=== PATIENT | female | born 1940 | race Caucasian/White ===

== ENCOUNTER 2019-02-03 15:28 | Emergency (ER) | payer OTHER ==
[~2019-02-03] VITALS: Ht 149.9 cm; Wt 70.5 kg
[2019-02-03 15:31] VITALS: Ht 149.9 cm; Wt 70.5 kg
[2019-02-03] MEDS ORDERED: DIPHTH/TET/ACEL PERTUSS (ADULT) 0.5 ML VIAL IM* ONE (17:00)
[2019-02-03] MEDS ORDERED: FENTAnyl 50 MCG/ML VIAL IV ONE ×2 (17:00→19:00)
[2019-02-03] MEDS ORDERED: ACETAMINOPHEN 325 MG TAB PO ONE (17:00)
[2019-02-03] MEDS ORDERED: SOD CHLORIDE 0.9% 100 ML ONE (17:42)
[2019-02-03] MEDS ORDERED: IODIXANOL LOCM 100 ML BTL ONE (17:42)
[2019-02-03] MEDS ORDERED: ATOR40TA68 PO (20:13)
[2019-02-03] MEDS ORDERED: OMEP40CA6 PO (20:13)
[2019-02-03] MEDS ORDERED: ASPI-1044 PO (20:13)
[2019-02-03] MEDS ORDERED: ACET500T98 PO (20:13)
[2019-02-03] MEDS ORDERED: LOSA50TA14 PO (20:13)
[2019-02-03] MEDS ORDERED: CARV25TA79 PO (20:13)
[2019-02-03] MEDS ORDERED: IRBE150T21 PO (20:13)
[2019-02-03] MEDS ORDERED: AMIO200T4 PO (20:13)
[2019-02-03] MEDS ORDERED: DOCU-159 PO (20:13)
[2019-02-03] MEDS ORDERED: ALBU18HF INHALATION (20:13)
[2019-02-03] MEDS ORDERED: FLUT1AER INHALATION (20:13)
[2019-02-03 21:05] VITALS: BP 139/76; PULSE 59; RESP 18
--- NOTE | 2019-02-03 21:22 | ERD ---
ER Documentation Chief Complaint Chief Complaint RIGHT ARM /SIDED PAIN DUE TO FALL; NO KO HPI This is a 78-year-old female with a past medical history of hypertension, hyperlipidemia, arrhythmia, CHF, COPD, GERD who is presenting after a trip and fall down 2 steps landing on her right side. She endorses hitting her head and has a right-sided headache with right-sided neck pain. She endorses right arm, chest, abdomen and lower leg pain as well. She denies loss of consciousness. She is not confused. She denies vision changes. She denies any focal deficits. She has no saddle anesthesia. She denies numbness or weakness or tingling to the face or extremities. She is not lightheaded or dizzy. She denies trouble breathing. She denies hematuria or black/bloody/dark stooling. She has no lacerations, but she did sustain an abrasion to the right hand. ROS All systems reviewed and are negative except as per history of present illness. Medications Home Meds Reported Medications Carvedilol* (Carvedilol*) 25 Mg Tablet, 25 MG PO BID 02/03/19 Losartan Potassium* (Losartan Potassium*) 50 Mg Tablet, 50 MG PO DAILY 02/03/19 Aspirin Delayed Release (Aspirin Delayed Release) 81 Mg Tablet.dr, 81 MG PO DAILY for 90 Days, #90 02/03/19 Atorvastatin* (Atorvastatin*) 40 Mg Tablet, 40 PO QHS for 90 Days, #90 02/03/19 Omeprazole* (Omeprazole*) 40 Mg Capsule.dr, 40 MG PO DAILY 02/03/19 Acetaminophen (Acetaminophen) 500 Mg Tablet, 500 MG PO Q6H 02/03/19 Docusate Sodium* (Docusate Sodium*) 100 Mg Capsule, 100 MG PO BID 02/03/19 Irbesartan* (Irbesartan*) 150 Mg Tablet, 300 MG PO QAM 02/03/19 Amiodarone Hcl* (Amiodarone Hcl*) 200 Mg Tablet, 200 PO DAILY for 90 Days, #90 02/03/19 Albuterol Sulfate* (Ventolin HFA*) 18 Gm Hfa.aer.ad, 2 PUFF INHALATION Q4H, #1 INHALER 02/03/19 Fluticasone-Vilanterol (Breo Ellipta Inhaler) 100-25 Mcg/Actuation Aer.pow.ba, 1 PUFF INHALATION DAILY, #1 INHALER 02/03/19 Allergies Allergies: Coded Allergies: No Known Allergy (Unverified , 02/03/19) PMhx/Soc History of Surgery: Yes (left shoulder sx) Anesthesia Reaction: No Hx Neurological Disorder: No Hx Respiratory Disorders: Yes (COPD) Hx Cardiac Disorders: Yes (Hypertension, hyperlipidemia, arrhythmia, CHF, diabe valentin) Hx Psychiatric Problems: No Hx Miscellaneous Medical Probl: Yes (GERD) Hx Alcohol Use: No Hx Substance Use: No Hx Tobacco Use: No Smoking Status: Never smoker FmHx Family History: diabetes Physical Exam Vitals Vital Signs Date Temp Pulse Resp B/P (MAP) Pulse Ox O2 O2 Flow FiO2 Time Delivery Rate 02/03/19 65 18 178/78 100 Room Air 17:22 (111) 02/03/19 98.3 63 18 222/102 100 15:31 (142) Physical Exam Const: No apparent distress, well-developed, well-nourished Head: Normocephalic, Atraumatic, no membreno sign Eyes: Normal Conjunctiva. Extraocular movements intact. Pupils equal, round and reactive to light. No raccoon eyes ENT: Normal External Ears, Nose and Mouth. No hemotympanum. Neck: Right-sided paraspinal tenderness without midline tenderness. No step- offs or deformities. No meningismus. Resp: Clear to auscultation bilaterally, No wheezes, rales or rhonchi Cardio: Regular rate and rhythm. No murmurs, rubs or gallops Abd: Soft, non tender, non distended. Normal bowel sounds Skin: No petechiae or rashes Back: No midline tenderness. No step-offs or deformities. No CVA tenderness Ext: No cyanosis, or edema. Abrasion to the right hand. Hematoma and bruising to the right lower leg. Neur: Awake and alert, oriented. Cranial nerves intact. No facial droop. Normal strength, sensation and coordination. Psych: Anxious Result Diagram: 02/03/19 1704 02/03/19 1704 Results 24 hrs Laboratory Tests Test 02/03/19 17:03 02/03/19 17:04 Prothrombin Time 14.6 Sec Prothrombin Time Ratio 1.1 INR International Normalized Ratio 1.13 Activated Partial Thromboplast Time 27.8 Sec White Blood Count 7.3 10^3/ul Red Blood Count 4.46 10^6/ul Hemoglobin 13.8 g/dl Hematocrit 39.7 % Mean Corpuscular Volume 89.0 fl Mean Corpuscular Hemoglobin 30.9 pg Mean Corpuscular Hemoglobin Concent 34.8 g/dl Red Cell Distribution Width 12.7 % Platelet Count 266 10^3/UL Mean Platelet Volume 9.1 fl Immature Granulocytes % 0.800 % Neutrophils % 53.7 % Lymphocytes % 30.6 % Monocytes % 11.2 % Eosinophils % 3.0 % Basophils % 0.7 % Nucleated Red Blood Cells % 0.0 /100WBC Immature Granulocytes # 0.060 10^3/ul Neutrophils # 3.9 10^3/ul Lymphocytes # 2.2 10^3/ul Monocytes # 0.8 10^3/ul Eosinophils # 0.2 10^3/ul Basophils # 0.1 10^3/ul Nucleated Red Blood Cells # 0.0 10^3/ul Sodium Level 142 mmol/L Potassium Level 3.8 mmol/L Chloride Level 109 mmol/L Carbon Dioxide Level 20 mmol/L Anion Gap 13 Blood Urea Nitrogen 19 mg/dl Creatinine 0.89 mg/dl Est Glomerular Filtrat Rate mL/min mL/min Glucose Level 114 mg/dl Calcium Level 10.5 mg/dl Total Bilirubin 0.8 mg/dl Direct Bilirubin 0.00 mg/dl Indirect Bilirubin 0.8 mg/dl Aspartate Amino Transf (AST/SGOT) 34 IU/L Alanine Aminotransferase (ALT/SGPT) 20 IU/L Alkaline Phosphatase 78 IU/L Troponin I < 0.012 ng/ml Total Protein 8.2 g/dl Albumin 4.6 g/dl Current Medications Medications Dose Sig/Edwin Start Time Status Last (Trade) Ordered Route PRN Stop Time Admin Dose Reason Admin 650 mg ONCE ONCE 02/03/19 DC 02/03/19 Acetaminophen PO 17:00 16:54 (Tylenol 02/03/19 17:01 Tab) Fentanyl 25 mcg ONCE ONCE 02/03/19 DC 02/03/19 (Sublimaze) IV 17:00 16:54 02/03/19 17:01 Diphtheria/ 0.5 ml ONCE ONCE 02/03/19 DC 02/03/19 Tetanus/Acell IM* 17:00 16:56 Pertussis 02/03/19 17:01 (Adacel) IV Flush 10 ml STK-MED 02/03/19 DC (NS 10 ml) ONCE .ROUTE 17:42 02/03/19 17:43 Sodium 100 ml @ ud STK-MED 02/03/19 DC Chloride ONCE .ROUTE 17:42 02/03/19 17:43 Iodixanol 100 ml STK-MED 02/03/19 DC (Visipaque ONCE .ROUTE 17:42 Locm) 02/03/19 17:43 Fentanyl 25 mcg ONCE ONCE 02/03/19 DC 02/03/19 (Sublimaze) IV 19:00 18:53 02/03/19 19:01 Procedures/MDM MDM The patient's presentation warrants further investigation. Previous medical records, if available, were reviewed. LABS The patient's laboratory testing was obtained and reviewed. No emergent treat ment was required unless described below. CBC: No E/o systemic infection or severe anemia or thrombocytopenia Chemistry: No E/o severe acidosis or alkalosis or renal failure or liver disease or diabetic ketoacidosis PT/INR: No E/o significant coagulopathy IMAGING Imaging and Radiology interpretation reviewed. CT Head FINDINGS: There is no intracranial hemorrhage, mass effect, or midline shift. No extra-axial fluid collection is seen. There is mild to moderate age appropriate diffuse cerebral volume loss with sulcal and ventricular dilatation. Ventricles are of normal configuration. There is mild white matter disease compatible with chronic small vessel ischemia.. The ku white matter d ifferentiation appears well-preserved. The visualized paranasal sinuses and osseous structures are grossly unremarkable. No skull fracture is visualized. There is no scalp hematoma. IMPRESSION: No intracranial hemorrhage or skull fracture. Age-appropriate atrophy. Mild white matter disease compatible with chronic small vessel ischemia. No evidence of acute transcortical infarct or mass. Electronically viewed and signed by .René Thrasher MD, MD on 02/03/2019 18:02 CT Cervical Spine FINDINGS: Normal alignment of C1-T1 vertebral bodies is seen. Hard palate, temporomandibular joint, atlantoaxial, atlanto-occipital joints appear in tact.. Anterior osteophytic spurring noted at C6-7 level. Prevertebral soft tissues appear unremarkable. Limited slices through base of brain appears unremarkable. No fracture dislocation seen. Calcification in the C1-C2 level is seen. No prior films available Moderate calcifications noted in the ICA bilaterally. Thyroid gland demonstrates normal configuration lung apices are clear. Calcified aortic arch is seen. IMPRESSION: Mild degenerate changes. No acute fractures seen. For further evaluation of ligamentous, soft tissue structures, marrow pathology followup MRI may be helpful. Electronically viewed and signed by Physician Pascale on 02/03/2019 18:23 CT Chest FINDINGS: CT chest: Normal opacification of the carotid arteries, calcified aortic arch is seen. No aortic dissection noted. No saddle emboli seen. Cardiomegaly is noted without pericardial effusion. Small retrocardiac hiatal hernia seen. No significant mediastinal adenopathy noted. CT abdomen: fatty liver, normal spleen, nondistended stomach, normal adrenals, and pancreas,, kidneys and are seen. Ostial calcification of the celiac, SMA, bilateral renal arteries is noted. Gallbladder is not seen. Bowel gas pattern appears nonspecific with moderate colonic stool no free air or ascites noted. Large amount of intra-abdominal fat is seen. CT pelvis: Large uterus, distended bladder, few diverticula in the rectosigmoid colon is seen. No pelvic ascites noted. Bilateral femoral hernias containing fat Lung windows demonstrate symmetric lung volumes with no subpleural blebs, pneumothorax, displaced rib fracture or pleural effusion noted. Scarring versus linear atelectasis left lung base noted. Osteophytic spurring in the lower dorsal spine noted. IMPRESSION: Linear atelectasis left lower lobe medially. No aortic dissection or saddle emboli noted. Bowel gas pattern appears nonspecific with no free air, ascites noted. No peripancreatic or duodenal fluid collection noted. Electronically viewed and signed by Physician Pascale on 02/03/2019 18:36 CT Abdomen, Pelvis FINDINGS: LUNG BASES: Atelectasis at the left greater than right lung bases. Please see CT chest reported separately. ABDOMEN/PELVIS: Liver: Normal. Hepatic vasculature: Portal veins, splenic vein, SMV and hepatic veins are not well opacified due to the phase of contrast injection. Gallbladder: Absent. Bile ducts: No intrahepatic or extrahepatic biliary duct dilatation. Spleen: Normal. Pancreas: Normal. Adrenal glands: Normal. Kidneys and ureters: Normal. Aorta and IVC: Atherosclerotic calcification and tortuosity of aorta and iliac vessels. Negative for abdominal aortic aneurysm. Lymph nodes: Normal. Gastrointestinal tract: Two moderate sized periampullary duodenal diverticuli without complications. Small hiatus hernia. Colonic diverticulosis greatest in the sigmoid colon without diverticulitis. Appendix: Not well visualized. There is a collapsed tubular structure at the cecal pole that may represent a normal appendix. Bladder: Normal. Pelvic Organs: The uterus is retroflexed and is enlarged for a patient of this age. Ovaries are not visualized. Peritoneal cavity: No free fluid or free intraperitoneal air. Abdominal wall: Small indirect fat containing left inguinal hernia. MUSCULOSKELETAL: Imaged spine: There are multilevel degenerative changes in the lower lumbar spine with grade 1 degenerative anterolisthesis at L4-5. Bones are osteopenic. Negative for evidence of acute fracture. Bony pelvis: There are degenerative changes of bilateral sacroiliac joints and symphysis pubis and also in bilateral hips. There is an old healed fracture of the right obturator ring. Negative for acute fracture. IMPRESSION: 1. Negative for evidence of acute traumatic injury in the abdomen or pelvis . Please see CT chest reported separately. 2. The uterus appears large for a postmenopausal patient of this age and the uterine architecture cannot be evaluated with CT. Recommend further evaluation with non urgent pelvic ultrasound. Electronically viewed and signed by Physician Cyndee on 02/03/2019 18:43 XR R Tib/Fib FINDINGS: Borderline osteopenia. Contour irregularity of the distal fibula diaphysis/metaphysis. Hypertrophic change at the lateral and medial malleolus likely from prior injury. Small calcaneal spur at the origin of the plantar fascia and small calcaneal enthesophyte at the insertion of Achilles tendon. Lateral tibio-femoral compartment cartilage space narrowing and minimal patellofemoral marginal osteophyte formation. IMPRESSION: 1. Borderline osteopenia. 2. Contour irregularity of the distal fibula diaphysis/metaphysis compatible fracture of indeterminate age, possibly not acute. Correlate for site of pain. Recommend correlation with dedicated ankle radiographs. Electronically viewed and signed by .Delta Cardoso MD, on 02/03/2019 20:05 TREATMENT/DISPOSITION The patient presents after a trauma. The patient was evaluated fully without evidence of emergent posttraumatic pathology. The patient's CT imaging of the head and cervical spine are unremarkable. The patient has no focal deficits. I've low suspicion for intracranial pathology. I have low suspicion for cerebral ischemia or intracranial hemorrhage. The patient has no cervical spine tenderness. He can move his neck in all directions without any pain. As stated above, he does not have any focal deficits. He is not altered or intoxicated. He does not have any distracting injuries. The patient's cervical spine was clinically cleared using the Nexus C-spine rule. The patient does not have any saddle anesthesia. He has not been incontinent of urine or stool. He has not had any retention of urine or stool. I have low suspicion for spinal cord injury. The patient's chest CT does not reveal any evidence of pneumonia or pneumothorax or pulmonary edema or pleural effusion. The patient's cardiomediastinal silhouette is unremarkable. I do not suspect pericardial effusion. I do not see any mediastinal free air. I have low suspicion for esophageal tear or rupture. The patient does not have a widened mediastinum. The patient does not have chest pain radiating to the back. It does not have a sharp or tearing quality. I have low suspicion for thoracic aortic aneurysm or rupture or dissection. The patient's symptoms are not consistent with pulmonary embolism. The patient's abdominal CT is negative for an acute posttraumatic intra- abdominal pathology. The patient's vital signs are unremarkable. I low suspicion for hepatic or splenic or renal trauma. The patient does not have any GI or urinary bleeding. I decreased suspicion for intestinal injury. I have low suspicion for urethral injury. The patient does have an upper right jacobo hematoma, which is what prompted me to obtain a x-ray of the right tib-fib. There were initially concerns of a po ssible age-indeterminate fracture to the distal fibula. On assessment of the patient, she has no pain there. I discussed the image with the on-call radiologist who felt that it was unlikely to be new. The patient does have an abrasion to the right hand, but I have low suspicion for an acute fracture or dislocation. I have low suspicion for an emergent extremity injury. There is no evidence of any penetrating injuries. The patient did receive a tetanus shot in the emergency department. The patient was treated with Tylenol and fentanyl in the emergency department. DISCHARGE Upon reevaluation of the patient, symptoms have improved. No emergent diagnoses were identified. At this time, I feel that the patient stable for discharge. The patient was instructed to follow-up with a primary care physician in 1-3 days. The patient will be given strict precautions with which to return to the emergency department. Prescriptions: Tylenol, ibuprofen The patient's blood pressure was elevated at greater than 120/80 while in the emergency department. The patient was otherwise stable with no evidence of hypertensive urgency or emergency. The patient does not require admission for blood pressure control. I have discussed with the patient the risks of hypertension. I have instructed the patient to return to the ER for any new or worsening symptoms including chest pain, shortness of breath, headache, blurred vision, confusion, nausea, vomiting or LOC. I have advised the patient to follow up with the primary care physician for outpatient monitoring and treatment for hypertension in 1-3 days. Disclaimer: Inadvertent spelling and grammatical errors are likely due to EHR/dictation software use and do not reflect on the overall quality of patient care. Note that the electronic time recorded on this note does not necessarily reflect the actual time of the patient encounter. Departure Diagnosis: Primary Impression: Fall with no significant injury Encounter type: initial encounter Qualified Codes: W19.XXXA - Unspecified fall, initial encounter Additional Impressions: Head trauma Encounter type: initial encounter Qualified Codes: S09.90XA - Unspecified injury of head, initial encounter Soft tissue injury of neck Encounter type: initial encounter Qualified Codes: S19.9XXA - Unspecified injury of neck, initial encounter Right arm pain Right leg pain Right-sided chest wall pain Right sided abdominal pain Abrasion of right hand Encounter type: initial encounter Qualified Codes: S60.511A - Abrasion of right hand, initial encounter Hematoma of right lower extremity Encounter type: initial encounter Qualified Codes: S80.11XA - Contusion of right lower leg, initial encounter Condition: Stable Patient Instructions: Abdominal Pain, Abrasion, Chest Wall Contusion, Fall Prevention, Hematoma, Neck Sprain/Strain Additional Instructions: Thank you for for coming to [facility] for your care today. Please ask your nurse or provider if you have questions about your care today and do not leave until all your questions have been answered. Please use any medications given as directed and follow-up with your doctor (or the doctor you were referred to) in the next 1-3 days. If you do not have a primary care doctor you [place] [facility] [place] [facility] (listed below). You may also use motrin and tylenol as needed for fever and/or pain unless instr ucted otherwise by your provider or nurse. Indications for more urgent follow-up have been discussed, but you may return to the Emergency Department at ANY time for any worrisome or worsening symptoms. If you have abdominal pain, please know that no test or exam you received is perfect and you should follow up within 8 hours for continued pain. If you had any imaging studies today, such as an X-Ray or CT Scan, these studies will be reviewed later by a radiologist. You will be called if there are important findings that were not identified today, so make sure the contact information you provided at registration is correct. If you received any narcotic pain control medicine today, such as Vicodin, Morphine or Dilaudid, your coordination and judgment may be affected for a number of hours. Please do not drive or operate heavy machinery, and you may want someone to assist you at home. If you were given a prescription for narcotic medication, be aware that it is very addictive- use sparingly and only if necessary. PLEASE SEEK FURTHER EVALUATION AND MANAGEMENT AT YOUR DOCTORS OFFICE WITHIN THE NEXT 1-3 DAYS. IT IS YOUR RESPONSIBILITY TO MAKE AN APPOINTMENT FOR FOLOW-UP CARE. IF YOU HAVE A PRIMARY DOCTOR, PLEASE CALL THEIR OFFICE TO SCHEDULE AN APPOINTMENT FOR FOLLOW UP. IF YOU DO NOT HAVE A PRIMARY DOCTOR YOU CAN CALL OUR PHYSICIAN REFERRAL HOTLINE AT IF YOU CAN NOT AFFORD TO SEE A PHYSICIAN YOU CAN CHOSE FROM THE FOLLOWING [facility]: [facility] [address] [facility]. [facility] [address] [facility] [facility] [address] [facility]. [facility] [address] [facility]. [facility] [address] [facility]. [facility]. [address] JANEL DODD MD Feb 03, 2019 21:18
[2019-02-03] MEDS ORDERED: IBUP-1542 PO (21:23)
[2019-02-03] MEDS ORDERED: ACET500C5 PO (21:23)
== END 2019-02-03 21:51 | disposition home or self-care (01) ==
LOC: E/R 15:28
DX: S09.90XA Unspecified injury of head, initial encounter (principal); S19.9XXA Unspecified injury of neck, initial encounter; S60.511A Abrasion of right hand, initial encounter; S80.11XA Contusion of right lower leg, initial encounter; S29.9XXA Unspecified injury of thorax, initial encounter; S39.91XA Unspecified injury of abdomen, initial encounter; E11.9 Type 2 diabetes mellitus without complications; J44.9 Chronic obstructive pulmonary disease, unspecified; I11.0 Hypertensive heart disease with heart failure; I50.9 Heart failure, unspecified; W10.8XXA Fall (on) (from) other stairs and steps, initial encounter; Y92.9 Unspecified place or not applicable; Z79.82 Long term (current) use of aspirin; Z23 Encounter for immunization
CPT/HCPCS: 70450; 71260; 72125; 73590; 74177; 80048; 80076; 84484; 85025; 85610; 85730; 86850; 86900; 86901; 90471; 90715; 96374; 96376; J3010; Q9967; Z7502; Z7610